=== PATIENT | female | born 1970 | race African-American/Black ===

== ENCOUNTER 2022-10-11 12:15 | Inpatient (IN) ==
[2022-10-11] MEDS ORDERED: methylPREDNISolone SOD SUC 125 MG/2 ML VIAL IV STA (12:49)
[2022-10-11] MEDS ORDERED: ALBUTEROL NEB SOLN 5 MG/ML 20 ML/BOTTLE CONT NEB SCH (13:00)
[2022-10-11 13:02] LABS: Basophils % 0.3 % (0.0-0.8); Eosinophils # 0.1 10*3/uL (0.0-0.87); Eosinophils % 0.7 % (0.00-10.9); Hematocrit 38.1 VOL% (35.7-47.0); Hemoglobin 12.6 GM/DL (12.0-16.0); Immature Granulocytes % 0.4 %; Immature Granulocytes Absolute 0.03 #; Lymphocytes # 3.2 10*3/uL (1.4-4.0); Lymphocytes % 46.6 % (21.3-54.2); Mean Corpuscular HGB Conc 33.1 GM/DL (32-36); Mean Corpuscular Volume 103.3 FL (87-102); Monocytes # 0.8 10*3/uL (0.11-0.8); Monocytes % 11.9 % (1.7-12.7); Neutrophils % 40.1 % (38.7-73.9); Platelet Count 422 T/CUMM (130-400); Red Blood Count 3.69 MC/CUMM (3.8-5.5); White Blood Count 6.9 T/CUMM (4-12)
[2022-10-11] MEDS ORDERED: ACETAMINOPHEN 500 MG TABLET ONE (14:30)
[2022-10-11] MEDS ORDERED: ACETAMINOPHEN 500 MG TABLET PO STA (14:45)
[2022-10-11] MEDS ORDERED: DICLOFENAC SODIUM 50 MG TABLET PO PRN (16:48)
[2022-10-11] MEDS: LACTATED RINGERS 1,000 ML IV SCH (16:51)
[2022-10-11] MEDS: ACETAMINOPHEN 325 MG TABLET PO PRN (18:08)
[2022-10-11 18:13] LABS: Alanine Aminotransferase 34 U/L (13-56); Albumin 3.9 G/DL (3.4-5.0); Alkaline Phosphatase 89 U/L (45-117); Aspartate Amino Transferase 11 U/L (0-37); Bilirubin,Total < 0.39 MG/DL (0.20-1.00); Blood Urea Nitrogen 18 MG/DL (7-18); Calcium 8.9 MG/DL (8.5-10.1); Carbon Dioxide 23 MMOL/L (21-32); Chloride 108 MMOL/L (98-107); Glucose 216 MG/DL (74-106); Osmolality,Calculated 291.1 MOS/KG (273-304); Potassium 2.6 MMOL/L (3.5-5.1); Sodium 142 MMOL/L (136-145); Total Protein 7.2 G/DL (6.4-8.2)
[2022-10-11] MEDS: ALBUTEROL/IPRATROPIUM 3 ML NEB RESP TX SCH (19:38)
[2022-10-11] MEDS: LEVOFLOXACIN INJ 750 MG/150 ML PREMIX IV SCH (19:57)
[2022-10-11] MEDS: ENOXAPARIN 40 MG/0.4 ML SYRINGE SUBCUT SCH (20:32)
[2022-10-11] MEDS: POTASSIUM CHLORIDE 20 MEQ TABLET PO PRN ×2 (20:32→22:37)
[2022-10-11] MEDS: methylPREDNISolone SOD SUC 40 MG/1 ML VIAL IV SCH (20:32)
[2022-10-11] MEDS: MONTELUKAST 10 MG TABLET PO SCH (20:33)
[2022-10-11] MEDS: OSELTAMIVIR 75 MG CAPSULE PO SCH (20:38)
[2022-10-11] MEDS: FLUTICASONE/SALMETEROL 500-50 DISKUS 14 DOSE INH SCH (20:40)
[2022-10-12] MEDS: POTASSIUM CHLORIDE 20 MEQ TABLET PO PRN ×3 (00:30→09:14)
[2022-10-12] MEDS: ALBUTEROL/IPRATROPIUM 3 ML NEB RESP TX SCH ×5 (00:35→19:25)
[2022-10-12 01:33] LABS: Hematocrit 32.9 VOL% (35.7-47.0); Hemoglobin 10.9 GM/DL (12.0-16.0); Immature Granulocytes % 0.5 %; Immature Granulocytes Absolute 0.06 #; Lymphocytes # 0.6 10*3/uL (1.4-4.0); Lymphocytes % 4.8 % (21.3-54.2); Mean Corpuscular HGB Conc 33.1 GM/DL (32-36); Mean Corpuscular Volume 103.5 FL (87-102); Mean Platelet Volume 9.6 FL (9.6-12.0); Monocytes # 0.1 10*3/uL (0.11-0.8); Monocytes % 0.7 % (1.7-12.7); Platelet Count 384 T/CUMM (130-400); Red Blood Count 3.18 MC/CUMM (3.8-5.5); White Blood Count 11.7 T/CUMM (4-12)
[2022-10-12 01:53] LABS: Osmolality,Calculated 283.5 MOS/KG (273-304); Potassium 3.1 MMOL/L (3.5-5.1)
[2022-10-12 02:02] LABS: Lymphocytes 6 % (20-55); Platelet Estimate Normal; Total Cells Counted 100
[2022-10-12 02:03] LABS: Macrocytosis Slight
[2022-10-12] MEDS: LACTATED RINGERS 1,000 ML IV SCH ×2 (04:23→17:28)
[2022-10-12] MEDS: methylPREDNISolone SOD SUC 40 MG/1 ML VIAL IV SCH ×3 (04:56→20:16)
[2022-10-12] MEDS ORDERED: LORazepam 2 MG/1 ML VIAL IV ONE (07:37)
[2022-10-12] MEDS ORDERED: MORPHINE 2 MG/1 ML SYRINGE IV ONE (07:37)
[2022-10-12] MEDS ORDERED: methylPREDNISolone SOD SUC 40 MG/1 ML VIAL IV ONE (07:37)
[2022-10-12] MEDS ORDERED: MORPHINE 2 MG/1 ML SYRINGE ONE (07:37)
[2022-10-12] MEDS: ACETAMINOPHEN 325 MG TABLET PO PRN ×2 (08:28→20:16)
[2022-10-12 08:38] LABS: Arterial Base Excess iSTAT -4 MMOL/L (-2.5-2.5); Arterial Bicarbonate iSTAT 20.1 MMOL/L (20-26); Arterial O2 Saturation iSTAT 99 % (95-100); Arterial PCO2 iSTAT 34 MM HG (35-48); Arterial PO2 iSTAT 118 MM HG (80-95); Arterial Total CO2 iSTAT 21 MMO/L (23-27); Arterial pH iSTAT 7.383 (7.35-7.45)
[2022-10-12] MEDS: FLUTICASONE/SALMETEROL 500-50 DISKUS 14 DOSE INH SCH ×2 (09:15→20:15)
[2022-10-12] MEDS: PANTOPRAZOLE 40 MG TABLET PO SCH (09:15)
[2022-10-12] MEDS: OSELTAMIVIR 75 MG CAPSULE PO SCH ×2 (09:15→20:15)
[2022-10-12] MEDS: FLUTICASONE 50 MCG NASAL SPRAY 16 GM BOTTLE BOTH NARES SCH ×2 (17:01→20:15)
[2022-10-12] MEDS: LEVOFLOXACIN INJ 750 MG/150 ML PREMIX IV SCH (17:01)
[2022-10-12] MEDS: ENOXAPARIN 40 MG/0.4 ML SYRINGE SUBCUT SCH (20:16)
[2022-10-12] MEDS: MONTELUKAST 10 MG TABLET PO SCH (20:16)
[2022-10-12] MEDS: ALPRAZolam 0.5 MG TABLET PO PRN (20:16)
[2022-10-13] MEDS: ALBUTEROL/IPRATROPIUM 3 ML NEB RESP TX SCH ×4 (00:52→19:33)
[2022-10-13] MEDS: methylPREDNISolone SOD SUC 40 MG/1 ML VIAL IV SCH ×2 (04:33→20:55)
[2022-10-13] MEDS: LACTATED RINGERS 1,000 ML IV SCH ×2 (04:38→14:43)
[2022-10-13 07:31] LABS: Basophils % 0.1 % (0.0-0.8); Hematocrit 32.2 VOL% (35.7-47.0); Hemoglobin 10.4 GM/DL (12.0-16.0); Immature Granulocytes % 2.5 %; Immature Granulocytes Absolute 0.52 #; Lymphocytes # 0.8 10*3/uL (1.4-4.0); Lymphocytes % 3.5 % (21.3-54.2); Mean Corpuscular HGB Conc 32.3 GM/DL (32-36); Mean Corpuscular Volume 105.9 FL (87-102); Mean Platelet Volume 9.1 FL (9.6-12.0); Monocytes # 0.9 10*3/uL (0.11-0.8); Monocytes % 4.1 % (1.7-12.7); Neutrophils % 89.8 % (38.7-73.9); Platelet Count 338 T/CUMM (130-400); Red Blood Count 3.04 MC/CUMM (3.8-5.5); Red Cell Distribution Width 14.6 % (9.3-17.3); White Blood Count 21.2 T/CUMM (4-12)
[2022-10-13 07:48] LABS: Calcium 8.8 MG/DL (8.5-10.1); Osmolality,Calculated 280.3 MOS/KG (273-304); Potassium 3.9 MMOL/L (3.5-5.1)
[2022-10-13 07:52] LABS: Lymphocytes 4 % (20-55); Total Cells Counted 100
[2022-10-13 07:53] LABS: Platelet Estimate Adequate
[2022-10-13] MEDS: PANTOPRAZOLE 40 MG TABLET PO SCH (08:25)
[2022-10-13] MEDS: OSELTAMIVIR 75 MG CAPSULE PO SCH ×2 (08:25→20:57)
[2022-10-13] MEDS: ALPRAZolam 0.5 MG TABLET PO PRN (08:25)
[2022-10-13] MEDS: FLUTICASONE 50 MCG NASAL SPRAY 16 GM BOTTLE BOTH NARES SCH ×2 (08:27→20:57)
[2022-10-13] MEDS: FLUTICASONE/SALMETEROL 500-50 DISKUS 14 DOSE INH SCH ×2 (08:27→20:55)
[2022-10-13] MEDS ORDERED: GLUCAGON 1 MG VIAL IM PRN (11:30)
[2022-10-13] MEDS ORDERED: DEXTROSE 10% 250 ML BAG IV PRN (11:30)
[2022-10-13] MEDS: ACETAMINOPHEN 325 MG TABLET PO PRN (14:43)
[2022-10-13] MEDS: ONDANSETRON 4 MG/2 ML VIAL IV PRN ×2 (14:43→20:54)
[2022-10-13] MEDS: LEVOFLOXACIN INJ 750 MG/150 ML PREMIX IV SCH (16:33)
[2022-10-13] MEDS: ENOXAPARIN 40 MG/0.4 ML SYRINGE SUBCUT SCH (20:55)
[2022-10-13] MEDS: MONTELUKAST 10 MG TABLET PO SCH (20:57)
[2022-10-13] MEDS ORDERED: methylPREDNISolone SOD SUC 125 MG/2 ML VIAL IV ONE (21:47)
[2022-10-13] MEDS ORDERED: ALBUTEROL NEB SOLN 5 MG/ML 20 ML/BOTTLE CONT NEB ONE (22:00)
[2022-10-13] MEDS ORDERED: TERBUTALINE 1 MG/1 ML VIAL SUBCUT ONE (22:00)
[2022-10-13] MEDS ORDERED: LORazepam 2 MG/1 ML VIAL IV ONE ×2 (22:09→22:10)
[2022-10-13] MEDS ORDERED: MAGNESIUM SULF RIDER 2 GM/50 ML PREMIX IV ONE (22:12)
[2022-10-14] MEDS: ALBUTEROL/IPRATROPIUM 3 ML NEB RESP TX SCH ×6 (02:45→23:32)
[2022-10-14 04:41] LABS: Basophils % 0.1 % (0.0-0.8); Hematocrit 31.2 VOL% (35.7-47.0); Immature Granulocytes % 2.6 %; Immature Granulocytes Absolute 0.39 #; Lymphocytes # 0.6 10*3/uL (1.4-4.0); Lymphocytes % 3.8 % (21.3-54.2); Mean Corpuscular HGB Conc 32.1 GM/DL (32-36); Mean Corpuscular Volume 107.6 FL (87-102); Mean Platelet Volume 9.4 FL (9.6-12.0); Monocytes # 0.3 10*3/uL (0.11-0.8); Neutrophils % 91.5 % (38.7-73.9); Platelet Count 317 T/CUMM (130-400); Red Cell Distribution Width 14.6 % (9.3-17.3); White Blood Count 14.9 T/CUMM (4-12)
[2022-10-14 05:08] LABS: Hypochromia Slight; Lymphocytes 5 % (20-55); Platelet Estimate Adequate; Total Cells Counted 100
[2022-10-14 05:18] LABS: Calcium 8.5 MG/DL (8.5-10.1); Osmolality,Calculated 283.3 MOS/KG (273-304); Potassium 3.7 MMOL/L (3.5-5.1)
[2022-10-14] MEDS: LACTATED RINGERS 1,000 ML IV SCH ×2 (07:49→13:30)
[2022-10-14 08:14] LABS: Folate 8.96 NG/ML (5.38-24.0)
[2022-10-14] MEDS: ALPRAZolam 0.5 MG TABLET PO PRN ×2 (08:28→19:59)
[2022-10-14] MEDS: BENZONATATE 100 MG CAPSULE PO SCH ×3 (08:28→20:00)
[2022-10-14] MEDS: PANTOPRAZOLE 40 MG TABLET PO SCH (08:28)
[2022-10-14] MEDS: OSELTAMIVIR 75 MG CAPSULE PO SCH ×2 (08:28→20:00)
[2022-10-14] MEDS: methylPREDNISolone SOD SUC 40 MG/1 ML VIAL IV SCH ×2 (08:29→16:22)
[2022-10-14] MEDS: FLUTICASONE 50 MCG NASAL SPRAY 16 GM BOTTLE BOTH NARES SCH ×2 (08:32→20:01)
[2022-10-14] MEDS: FLUTICASONE/SALMETEROL 500-50 DISKUS 14 DOSE INH SCH ×2 (08:32→20:01)
[2022-10-14] MEDS ORDERED: diphenhydrAMINE CAP 25 MG CAPSULE PO PRN (10:38)
[2022-10-14] MEDS ORDERED: BUDESONIDE/FORMOTEROL 160-4.5 INHALER 6 GM INH SCH (11:00)
[2022-10-14] MEDS ORDERED: methylPREDNISolone SOD SUC 40 MG/1 ML VIAL IV ONE (11:00)
[2022-10-14] MEDS: POLYETHYLENE GLYCOL POWDER 17 GM PACK PO SCH (12:13)
[2022-10-14] MEDS ORDERED: methylPREDNISolone SOD SUC 40 MG/1 ML VIAL IV SCH ×2 (15:00)
[2022-10-14] MEDS: ENOXAPARIN 40 MG/0.4 ML SYRINGE SUBCUT SCH (20:00)
[2022-10-14] MEDS: MONTELUKAST 10 MG TABLET PO SCH (20:01)
[2022-10-14] MEDS: ACETAMINOPHEN 325 MG TABLET PO PRN (20:20)
[2022-10-15] MEDS: methylPREDNISolone SOD SUC 40 MG/1 ML VIAL IV SCH ×3 (00:09→16:11)
[2022-10-15] MEDS: LACTATED RINGERS 1,000 ML IV SCH (01:43)
[2022-10-15] MEDS: ALBUTEROL/IPRATROPIUM 3 ML NEB RESP TX SCH ×6 (03:15→23:06)
[2022-10-15 05:00] LABS: Basophils % 0.1 % (0.0-0.8); Hematocrit 32.2 VOL% (35.7-47.0); Hemoglobin 10.3 GM/DL (12.0-16.0); Immature Granulocytes % 2.9 %; Immature Granulocytes Absolute 0.41 #; Lymphocytes % 7.3 % (21.3-54.2); Mean Corpuscular Volume 107.3 FL (87-102); Mean Platelet Volume 9.5 FL (9.6-12.0); Monocytes # 0.6 10*3/uL (0.11-0.8); Monocytes % 4.4 % (1.7-12.7); NRBC # 0.02 10*3/uL; Neutrophils % 85.3 % (38.7-73.9); Platelet Count 303 T/CUMM (130-400); Red Cell Distribution Width 14.4 % (9.3-17.3); White Blood Count 14.2 T/CUMM (4-12)
[2022-10-15 05:13] LABS: Calcium 8.3 MG/DL (8.5-10.1); Osmolality,Calculated 281.3 MOS/KG (273-304); Potassium 3.5 MMOL/L (3.5-5.1)
[2022-10-15] MEDS: ALPRAZolam 0.5 MG TABLET PO PRN (08:54)
[2022-10-15] MEDS: BENZONATATE 100 MG CAPSULE PO SCH ×3 (08:55→21:11)
[2022-10-15] MEDS: PANTOPRAZOLE 40 MG TABLET PO SCH (08:55)
[2022-10-15] MEDS: POLYETHYLENE GLYCOL POWDER 17 GM PACK PO SCH (08:55)
[2022-10-15] MEDS: OSELTAMIVIR 75 MG CAPSULE PO SCH ×2 (08:55→21:11)
[2022-10-15] MEDS: AZITHROMYCIN INJ 500 MG in SODIUM CHLORIDE 0.9% 250 ML IV SCH (08:56)
[2022-10-15] MEDS: FLUTICASONE 50 MCG NASAL SPRAY 16 GM BOTTLE BOTH NARES SCH ×2 (09:03→21:12)
[2022-10-15] MEDS: FLUTICASONE/SALMETEROL 500-50 DISKUS 14 DOSE INH SCH ×2 (09:03→21:13)
[2022-10-15] MEDS ORDERED: FUROSEMIDE 40 MG/4 ML VIAL IV ONE (10:58)
[2022-10-15] MEDS ORDERED: POLYETHYLENE GLYCOL POWDER 17 GM PACK PO SCH (11:00)
[2022-10-15] MEDS: MONTELUKAST 10 MG TABLET PO SCH (21:11)
[2022-10-15] MEDS: ENOXAPARIN 40 MG/0.4 ML SYRINGE SUBCUT SCH (21:13)
[2022-10-16] MEDS: methylPREDNISolone SOD SUC 40 MG/1 ML VIAL IV SCH ×2 (00:45→09:57)
[2022-10-16] MEDS: ALBUTEROL/IPRATROPIUM 3 ML NEB RESP TX SCH (03:35)
[2022-10-16 05:59] LABS: Basophils % 0.1 % (0.0-0.8); Hematocrit 33.9 VOL% (35.7-47.0); Hemoglobin 10.9 GM/DL (12.0-16.0); Immature Granulocytes % 4.3 %; Lymphocytes % 6.8 % (21.3-54.2); Mean Corpuscular HGB Conc 32.2 GM/DL (32-36); Mean Corpuscular Volume 106.9 FL (87-102); Mean Platelet Volume 9.8 FL (9.6-12.0); Monocytes # 0.6 10*3/uL (0.11-0.8); Monocytes % 4.6 % (1.7-12.7); NRBC # 0.03 10*3/uL; Neutrophils % 84.2 % (38.7-73.9); Platelet Count 325 T/CUMM (130-400); Red Blood Count 3.17 MC/CUMM (3.8-5.5); Red Cell Distribution Width 13.8 % (9.3-17.3)
[2022-10-16 06:14] LABS: Calcium 8.7 MG/DL (8.5-10.1); Osmolality,Calculated 280.5 MOS/KG (273-304)
[2022-10-16 06:25] LABS: Lymphocytes 7 % (20-55); Total Cells Counted 100
[2022-10-16 06:26] LABS: Platelet Estimate Adequate
[2022-10-16] MEDS: ACETAMINOPHEN 325 MG TABLET PO PRN (07:47)
[2022-10-16] MEDS ORDERED: hydrALAZINE 20 MG/1 ML VIAL IV PRN (09:08)
[2022-10-16] MEDS ORDERED: amLODIPine 10 MG TABLET PO SCH (09:30)
[2022-10-16] MEDS: FLUTICASONE/SALMETEROL 500-50 DISKUS 14 DOSE INH SCH (09:56)
[2022-10-16] MEDS: POLYETHYLENE GLYCOL POWDER 17 GM PACK PO SCH (09:56)
[2022-10-16] MEDS: FLUTICASONE 50 MCG NASAL SPRAY 16 GM BOTTLE BOTH NARES SCH (09:56)
[2022-10-16] MEDS: OSELTAMIVIR 75 MG CAPSULE PO SCH (09:57)
[2022-10-16] MEDS: BENZONATATE 100 MG CAPSULE PO SCH (09:57)
[2022-10-16] MEDS: PANTOPRAZOLE 40 MG TABLET PO SCH (09:57)
[2022-10-16] MEDS: AZITHROMYCIN INJ 500 MG in SODIUM CHLORIDE 0.9% 250 ML IV SCH (09:58)
[2022-10-16] MEDS ORDERED: POTASSIUM CHLORIDE 20 MEQ TABLET PO ONE (10:59)
[2022-10-16 12:44] VITALS: BP 133/77
== END 2022-10-16 13:25 | disposition home or self-care (01) | DRG 202 ==
LOC: N.ED 12:15 → SUATTDRO 16:02 → N.EDINP 16:02 → N.5E 16:32
PROVIDERS: ADMIT Phlebology; ATTEND Emergency Medicine